=== PATIENT | male | born 1975 | race Caucasian/White ===

== ENCOUNTER 2019-08-22 01:05 | Outpatient (CLI) | payer OTHER, SELFPAY ==
--- NOTE | 2019-08-22 | DI.RAD_ITS ---
EXAM: XR ARTHRITIS SERIES CLINICAL HISTORY: BILAT HAND PAIN, SWELLING,EVALUATE FOR ARTHRITIS,[id number], H/O HEMO- TECHNIQUE: COMPARISON: No exams were available for comparison FINDINGS: AP and oblique views of both hands were obtained. There is slight narrowing of the cartilaginous sona nt spaces of IP joints bilaterally. No bony abnormality seen. Bones appear well mineralized. No sp ecific abnormality of the carpus seen. IMPRESSION: Minimal loss cartilaginous joint spaces PIP and DIP joints bilaterally, consistent with mild degenera tive changes.
== END 2019-08-22 01:25 ==
PROVIDERS: PCP Occupational Therapist; Visit Provider Occupational Therapist
DX: M79.641 Pain in right hand (principal); M79.642 Pain in left hand; M19.041 Primary osteoarthritis, right hand; M19.042 Primary osteoarthritis, left hand
CPT/HCPCS: 73120